=== PATIENT | male | born 1985 | race African-American/Black ===

== ENCOUNTER 2018-02-05 03:34 | Emergency (ER) | payer OTHER ==
[2016-01-29 00:34] VITALS: BP 156/107
[~2018-02-05 03:34] MED LIST: SULF1TAB24 PO
--- NOTE | 2018-02-05 04:02 | PHYS DOC ---
Past Medical History Past Medical History: No Pertinent History Past Surgical History: Other Additional Past Surgical Histo: BOWEL SURGERY Alcohol Use: None Drug Use: None Adult General Chief Complaint Chief Complaint: DIZZY/LIGHT HEADED HPI HPI Patient is a 32 year old [f__sex] who presents with [] Allergies Allergies Allergies Coded Allergies Type Severity Reaction Last Updated Verified Penicillins Allergy Intermediate 01/29/16 Yes EKG EKG [] Radiology/Procedures Radiology/Procedures [] Course & Med Decision Making Course & Med Decision Making Pertinent Labs and Imaging studies reviewed. (See chart for details) []lwbs after triage. i went back to see him he was not in the room, staff told me he had been sen eating chips in the waiting room and was ambulating with steady gait. Dragon Disclaimer Dragon Disclaimer This electronic medical record was generated, in whole or in part, using a voice recognition dictation system. Departure Departure Impression: Primary Impression: Patient left without being seen Disposition: 01 LEFT WITHOUT BEING SEEN Condition: LEFT WITHOUT BEING SEEN Referrals: ADRIEL GARCIA MD (PCP) MATT DALAL MD Feb 05, 2018 04:02
== END 2018-02-05 04:04 | disposition left against medical advice (07) ==
LOC: ER 03:34
DX: R42 Dizziness and giddiness (principal); Z88.0 Allergy status to penicillin; Z53.21 Procedure and treatment not carried out due to patient leaving prior to being seen by health care provider